=== PATIENT | male | born 1950 | race Caucasian/White ===

== ENCOUNTER → 2019-01-14 | Outpatient (CLI) | payer MEDICARE, BC ==
[~2019-01-14] MED LIST: COUMADIN 6MG6 MG/TAB PO; NORVASC 5MG5 MG/TAB PO; PRADAXA75 MG PO; beta blocker
== END ==
LOC: COL.VAS 08:07
DX: I08.1 Rheumatic disorders of both mitral and tricuspid valves (principal); I27.20 Pulmonary hypertension, unspecified

== ENCOUNTER → 2023-07-20 | Outpatient (CLI) | payer MEDICARE, BC | LOC: COL.VAS 09:58 | DX: I51.7 Cardiomegaly (principal); I34.0 Nonrheumatic mitral (valve) insufficiency; I36.1 Nonrheumatic tricuspid (valve) insufficiency; I34.81 Nonrheumatic mitral (valve) annulus calcification; I27.20 Pulmonary hypertension, unspecified ==

== ENCOUNTER → 2024-07-19 | Outpatient (CLI) | payer MEDICARE, BC | LOC: COL.VAS 12:26 | DX: I08.1 Rheumatic disorders of both mitral and tricuspid valves (principal); I27.20 Pulmonary hypertension, unspecified ==